=== PATIENT | female | born 1990 | race Two or more races ===

== ENCOUNTER 2023-07-21 14:26 | Outpatient (OUT) | payer BC, SELFPAY | END 2023-07-21 14:27 | disposition home or self-care (01) | LOC: MN 14:29 | PROVIDERS: PCP Internal Medicine | DX: E66.01 Morbid (severe) obesity due to excess calories (principal); Z68.41 Body mass index [BMI] 40.0-44.9, adult; E11.9 Type 2 diabetes mellitus without complications ==